=== PATIENT | male | born 1940 | race Caucasian/White ===

== ENCOUNTER 2018-04-11 16:48 | Emergency (ER) | payer MEDICARE, OTHER ==
[~2018-04-11] VITALS: Ht 167.6 cm; Wt 99.9 kg
[2018-04-11 17:51] LABS: BASOPHILS # (AUTO) 0.1 X10'3 (0-0.2); BASOPHILS % (AUTO) 0.7 % (0-1); EOSINOPHILS # (AUTO) 0.1 X10'3 (0-0.9); EOSINOPHILS % (AUTO) 1.5 % (0-6); HEMATOCRIT 44.7 % (42.0-52.0); HEMOGLOBIN 15.1 g/dl (14.0-17.9); LYMPHOCYTES # (AUTO) 1.7 X10'3 (1.1-4.8); MEAN CORPUSCULAR HEMOGLOBIN 31.9 PG (27.0-31.0); MEAN CORPUSCULAR HGB CONC 33.8 % (33.0-36.5); MEAN CORPUSCULAR VOLUME 94.4 FL (78-98); MEAN PLATELET VOLUME 6.6 FL (7.4-10.4); MONOCYTES # (AUTO) 0.7 X10'3 (0-0.9); MONOCYTES % (AUTO) 8.7 % (2-12); NEUTROPHILS # (AUTO) 5.3 X10'3 (1.8-7.7); NEUTROPHILS % (AUTO) 67.1 % (42-75); PLATELET COUNT 152 X10'3 (140-440); RED BLOOD COUNT 4.74 X10'6 (4.70-6.10); RED CELL DISTRIBUTION WIDTH 13.9 % (11.5-14.5); WHITE BLOOD COUNT 7.9 X10'3 (4.5-11.0)
[2018-04-11 18:07] LABS: GLUCOSE 100 MG/DL (70-104)
[2018-04-11 18:08] LABS: ALANINE AMINOTRANSFERASE 19 U/L (12-78); ALBUMIN 3.8 G/DL (3.4-5.0); ALBUMIN/GLOBULIN RATIO 1.1 (1.1-1.5); ALKALINE PHOSPHATASE 72 IU/L (46-116); ANION GAP 13 (8-16); ASPARTATE AMINO TRANSFERASE 17 U/L (10-37); BILIRUBIN,TOTAL 0.8 MG/DL (0.1-1.0); BLOOD UREA NITROGEN 14 MG/DL (7-18); BUN/CREATININE RATIO 15.2 (5.4-32.0); CALCIUM 9.6 MG/DL (8.5-10.1); CHLORIDE 102 MMOL/L (99-107); CREATININE 0.92 MG/DL (0.60-1.10); POTASSIUM 4.4 MMOL/L (3.5-5.1); SODIUM 139 MMOL/L (135-145); TOTAL CARBON DIOXIDE 23.8 MMOL/L (24-32); TOTAL PROTEIN 7.3 G/DL (6.4-8.2); eGFR 80 ML/MIN
[2018-04-11 18:16] LABS: ETHANOL < 0.010 GM/DL (0.0-0.010)
[2018-04-11] MEDS ORDERED: HYDR-565 PO (19:58)
[2018-04-11] MEDS ORDERED: CHOL400T57 CORPAK (19:59)
[2018-04-11] MEDS ORDERED: FURO-150 PO (19:59)
[2018-04-11] MEDS ORDERED: CALC-393 PO (19:59)
[2018-04-11] MEDS ORDERED: FLO0.4C PO (19:59)
[2018-04-11] MEDS ORDERED: NITR0.3T10 SL (19:59)
[2018-04-11] MEDS ORDERED: FINA5TAB11 PO (19:59)
[2018-04-11] MEDS ORDERED: PANT20TA2 PO (19:59)
[2018-04-11] MEDS ORDERED: CARV3.122 PO (19:59)
[2018-04-11] MEDS ORDERED: ASPI-1265 PO (19:59)
[2018-04-11] MEDS ORDERED: SACU1TAB7 PO (19:59)
[2018-04-11] MEDS ORDERED: DOCU-148 PO (19:59)
[2018-04-11] MEDS ORDERED: CLOP75TA15 PO (19:59)
[2018-04-11] MEDS ORDERED: ATOR40TA PO (19:59)
[2018-04-11] MEDS ORDERED: FENT1PAT10 TP (19:59)
[2018-04-11] MEDS ORDERED: ESCI10TA54 PO (19:59)
[2018-04-11] MEDS ORDERED: POTA10CA44 PO (19:59)
[2018-04-11 21:03] LABS: URINE AMPHETAMINE SCREEN NEGATIVE (Neg); URINE BARBITUATE SCREEN NEGATIVE (Neg); URINE BENZODIAZEPINES SCREEN NEGATIVE (Neg); URINE COCAINE SCREEN NEGATIVE (Neg); URINE METHADONE SCREEN NEGATIVE (Neg); URINE OPIATE SCREEN POSITIVE (Neg); URINE PHENCYCLIDINE SCREEN NEGATIVE (Neg)
[2018-04-11 21:14] LABS: URINE CANNABINOID SCREEN NEGATIVE (Neg)
[2018-04-12] MEDS ORDERED: acetaminophen 325mg tablet PO ONE (01:20)
[2018-04-12] MEDS ORDERED: HYDROcodone/acetaminophen 10/325mg tab PO PRN (02:40)
[2018-04-12] MEDS ORDERED: nitroGLYCERIN 0.4mg SUBLingual tab SL PRN (02:40)
[2018-04-12] MEDS ORDERED: FENTANYL CADD WASTE DOCUMENT MC ONE (02:50)
[2018-04-12] MEDS: fentaNYL 50MCG/HOUR patch.TD72 TD SCH (03:34)
[2018-04-12] MEDS: pantoprazole 40mg Tablet.DR PO SCH (07:33)
[2018-04-12] MEDS ORDERED: sacubitril/valsartan 49mg-51mg tablet PO SCH (08:00)
[2018-04-12] MEDS: clopidogrel 75mg tablet PO SCH (08:44)
[2018-04-12] MEDS: carVEDilol 3.125mg tablet PO SCH (08:44)
[2018-04-12] MEDS: finasteride 5mg tablet PO SCH (08:45)
[2018-04-12] MEDS: tamsulosin 0.4mg capsule PO SCH (08:45)
[2018-04-12] MEDS: calcium carbonate/vitamin D3 tablet PO SCH (08:45)
[2018-04-12] MEDS: citalopram 20mg tablet PO SCH (08:45)
[2018-04-12] MEDS: aspirin 81mg tab.chew PO SCH (08:45)
[2018-04-12] MEDS: cholecalciferol (vitamin D) 400 unit tablet PO SCH (08:45)
[2018-04-12] MEDS: sacubitril/valsartan 24mg-26mg tablet PO SCH ×2 (08:45→20:00)
[2018-04-12] MEDS: potassium chloride 10mEq ER tablet PO SCH ×2 (08:45→20:07)
[2018-04-12] MEDS: furosemide 20MG tablet PO SCH (08:45)
[2018-04-12] MEDS: docusate sod 100mg capsule PO SCH (08:45)
[2018-04-12] MEDS: atorvastatin 20mg tablet PO SCH (08:48)
[2018-04-12] MEDS: HYDROcodone/acetaminophen 10/325mg tab PO PRN (16:12)
[2018-04-13] MEDS: HYDROcodone/acetaminophen 10/325mg tab PO PRN (05:00)
[2018-04-13] MEDS: pantoprazole 40mg Tablet.DR PO SCH (07:42)
[2018-04-13] MEDS: atorvastatin 20mg tablet PO SCH (08:00)
[2018-04-13] MEDS: furosemide 20MG tablet PO SCH (08:00)
[2018-04-13] MEDS: potassium chloride 10mEq ER tablet PO SCH ×2 (08:00→19:55)
[2018-04-13] MEDS: carVEDilol 3.125mg tablet PO SCH (08:00)
[2018-04-13] MEDS: aspirin 81mg tab.chew PO SCH (08:00)
[2018-04-13] MEDS: tamsulosin 0.4mg capsule PO SCH (08:00)
[2018-04-13] MEDS: docusate sod 100mg capsule PO SCH (08:00)
[2018-04-13] MEDS: cholecalciferol (vitamin D) 400 unit tablet PO SCH (08:00)
[2018-04-13] MEDS: clopidogrel 75mg tablet PO SCH (08:00)
[2018-04-13] MEDS: citalopram 20mg tablet PO SCH (08:00)
[2018-04-13] MEDS: calcium carbonate/vitamin D3 tablet PO SCH (08:00)
[2018-04-13] MEDS: finasteride 5mg tablet PO SCH (08:00)
[2018-04-13] MEDS: sacubitril/valsartan 24mg-26mg tablet PO SCH ×2 (08:01→19:52)
[2018-04-14] MEDS: HYDROcodone/acetaminophen 10/325mg tab PO PRN ×2 (07:58→18:32)
[2018-04-14] MEDS: pantoprazole 40mg Tablet.DR PO SCH (07:58)
[2018-04-14] MEDS: aspirin 81mg tab.chew PO SCH (08:26)
[2018-04-14] MEDS: atorvastatin 20mg tablet PO SCH (08:26)
[2018-04-14] MEDS: carVEDilol 3.125mg tablet PO SCH (08:26)
[2018-04-14] MEDS: sacubitril/valsartan 24mg-26mg tablet PO SCH ×2 (08:26→20:44)
[2018-04-14] MEDS: furosemide 20MG tablet PO SCH (08:27)
[2018-04-14] MEDS: tamsulosin 0.4mg capsule PO SCH (08:27)
[2018-04-14] MEDS: clopidogrel 75mg tablet PO SCH (08:27)
[2018-04-14] MEDS: cholecalciferol (vitamin D) 400 unit tablet PO SCH (08:27)
[2018-04-14] MEDS: docusate sod 100mg capsule PO SCH (08:27)
[2018-04-14] MEDS: potassium chloride 10mEq ER tablet PO SCH ×2 (08:27→20:44)
[2018-04-14] MEDS: citalopram 20mg tablet PO SCH (08:28)
[2018-04-14] MEDS: calcium carbonate/vitamin D3 tablet PO SCH (08:50)
[2018-04-14] MEDS: finasteride 5mg tablet PO SCH (09:49)
[2018-04-15] MEDS: fentaNYL 50MCG/HOUR patch.TD72 TD SCH (02:57)
[2018-04-15 05:53] VITALS: BP 129/79
[2018-04-15] MEDS: tamsulosin 0.4mg capsule PO SCH (08:06)
[2018-04-15] MEDS: cholecalciferol (vitamin D) 400 unit tablet PO SCH (08:06)
[2018-04-15] MEDS: aspirin 81mg tab.chew PO SCH (08:06)
[2018-04-15] MEDS: atorvastatin 20mg tablet PO SCH (08:06)
[2018-04-15] MEDS: carVEDilol 3.125mg tablet PO SCH (08:06)
[2018-04-15] MEDS: citalopram 20mg tablet PO SCH (08:06)
[2018-04-15] MEDS: finasteride 5mg tablet PO SCH (08:07)
[2018-04-15] MEDS: sacubitril/valsartan 24mg-26mg tablet PO SCH (08:07)
[2018-04-15] MEDS: furosemide 20MG tablet PO SCH (08:11)
[2018-04-15] MEDS: potassium chloride 10mEq ER tablet PO SCH (08:11)
[2018-04-15] MEDS: docusate sod 100mg capsule PO SCH (08:11)
[2018-04-15] MEDS: pantoprazole 40mg Tablet.DR PO SCH (08:11)
[2018-04-15] MEDS: calcium carbonate/vitamin D3 tablet PO SCH (08:12)
[2018-04-15] MEDS: clopidogrel 75mg tablet PO SCH (08:12)
== END 2018-04-15 12:26 | disposition home or self-care (01) ==
LOC: ER 16:50
DX: T40.4X2A Poisoning by other synthetic narcotics, intentional self-harm, initial encounter (principal); G89.29 Other chronic pain; M54.9 Dorsalgia, unspecified; Z79.82 Long term (current) use of aspirin; Z95.0 Presence of cardiac pacemaker; Z79.899 Other long term (current) drug therapy; Y92.89 Other specified places as the place of occurrence of the external cause
CPT/HCPCS: 36415; 80053; 80305; 80320; 84443; 85025; 99285